=== PATIENT | male | born 1950 | race Caucasian/White ===

== ENCOUNTER 2017-05-14 09:10 | Outpatient (CLI) | payer MEDICARE, BC ==
[~2017-05-14] VITALS: Ht 182.9 cm; Wt 96.7 kg
--- NOTE | ~2017-05-14 | HEMODYNAMI ---
PATIENT:BABAK LANGLEY MEDICAL RECORD: [id number] : 52 [facility] [id number] ADMISSION DATE: 05/14/17 Generatedon:05/15/201710:01 Patient name: BABAK LANGLEY Patient #: [id number] SSN: DO B: 1950 Date of study: 05/15/2017 Page: Of Hemodynamic Procedure Report Patient Data Patient Demographics Procedure consent was obtained First Name: BABAK Gender: Male Last Name: SHIVAM : 1950 Middle Initial: ANYA Age: 66 year(s) Patient #: [id number] Race: Unknown Additional ID: [id number] Contact details [address]: [address] [place] [address] State: [place] City: [place] Zip code: [address] Past Medical History Allergies: No known allergies Admission Admission Data Admission Date: 05/14/2017 Admission Time: 13:11 Room #: .2121 Procedure Procedure Types Cath Procedure Diagnostic Procedure LHC LHC w/Coronaries PCI Procedure Coronary Stent Coronary Stent Initial Coronary Stent Additional Miscellaneous Procedures Moderate Sedation up to 30 minutes Procedure Description Procedure Date Procedure Date: 05/15/2017 Procedure Start Time: 9:28 Procedure End Time: 10:01 Procedure Staff Name Function Tres Phillips MD Performing Physician Clarice Stubbs RT Monitor Emma Holcomb RT Scrub Jared Lilly RN Nurse Procedure Data Cath Procedure Fluoroscopy Diagnostic fluoroscopy Total fluoroscopy Time: 5.8 time: 5.8 min min Diagnostic fluoroscopy Total fluoroscopy dose: dose: 1130 mGy 1130 mGy Contrast Material Contrast Material Type Amount (ml) Isovue 300 132 Entry Location Entry Primary Successful Side Size Upsize Upsize Entry Closure Succes sful Closure Location (Fr) 1 (Fr) 2 (Fr) Remarks Device Remarks Femoral Right 5 Fr 6 Fr Exoseal artery Short Estimated blood loss: 10 ml Diagnostic catheters Device Type Used For End Catheter Placement Cordis 5Fr JL 4.0 Left Coronary Catheter (MP) Angiography Cordis 5Fr 3DRC Catheter Right Coronary (MP) Angiography Cordis 5Fr Pigtail LV Angiography Catheter (MP) Procedure Complications No complications Procedure Medications Medication Administration Route Dosage Oxygen NC 2 l/min Lidocaine 2% added to field 20 Heparin Flush Bag added to field 2 bags (1000units/500ml NS) 0.9% NaCl I.V. 100 ml/hr Versed I.V. 1 mg Fentanyl I.V. 50 mcg Heparin Bolus I.V. 5000 units Versed I.V. 1 mg Fentanyl I.V. 50 mcg Versed I.V. 1 mg Atropine I.V. 1 mg Versed I.V. 1 mg Plavix P.O. 75 mg Hemodynamics Rest Heart Rate: 65 (bpm) Pressure Samples Time Site Value (mmHg) Purpose Heart Use Rate(bpm) 9:35 LV 124/8,17 Snapshot 76 9:36 AO 114/60(83) Pullback 75 9:36 LV 130/13,18 Pullback 75 Gradients Valve Time Site 1 Site 2 Mean SEP/DFP Peak To Heart Use (mmHg) (sec/min) Peak Rate (mmHg) (bpm) Aortic 9:36 LV AO 8 20 16 75 130/13,18 114/60(83) Calculations Valve P-P Mean Valve Index Valve Source Name Gradient Area Flow (cm2) Aortic 16 8 16 8 Snapshots Pre Cath Intra NCS Post Cath Vital Signs Time Heart Resp SPO2 etCO2 NIBP (mmHg) Rhythm Pain Sedation Rate (ipm) (%) (mmHg) Status Level (bpm) 9:21:19 65 15 98 33.3 139/78(107) NSR 0 (11) 10(A) , No pain 9:26:08 67 14 98 10.6 136/72(100) NSR 0 (11) 10(A) , No pain 9:30:54 71 17 94 35.5 121/77(102) NSR 0 (11) 9(A) , No pain 9:35:39 76 15 95 7.5 128/71(101) NSR 0 (11) 9(A) , No pain 9:40:24 73 15 94 0 132/70(106) NSR 0 (11) 9(A) , No pain 9:45:11 85 15 94 0 128/71(95) NSR 0 (11) 9(A) , No pain 9:49:55 91 16 97 28 133/85(105) NSR 0 (11) 9(A) , No pain 9:54:42 98 15 97 37.1 142/81(105) NSR 0 (11) 10(A) , No pain 9:59:31 101 16 96 28.8 146/80(119) NSR 0 (11) 10(A) , No pain Medications Time Medication Route Dose Verified Delivered Reason Notes Effectiveness by by 9:22:05 Oxygen NC 2 Tres Buffie used for l/min [facility] Dru Lilly RN procedure 9:22:14 Lidocaine 2% added 20ml Tres Tres for local to vial [facility] anesthetic field MD MASTERS 9:22:21 Heparin Flush added 2 Tres Tres used for Bag to bags [facility] procedure (1000units/500ml field MD MASTERS NS) 9:22:30 0.9% NaCl I.V. 100 Tres Buffie Per physician ml/hr [facility] Dru Lilly RN, MD 9:27:34 Versed I.V. 1 mg Tres Buffie for sedation [facility]. Dru Lilly RN, MD 9:27:40 Fentanyl I.V. 50 Tres Buffie for sedation mcg [facility] Dru Lilly RN, MD 9:33:14 Versed I.V. 1 mg Tres Buffie for sedation [facility]. Dru Lilly RN, MD 9:33:18 Fentanyl I.V. 50 Tres Buffie for sedation mcg [facility] Dru Lilly RN, MD 9:41:15 Heparin Bolus I.V. 5000 Tres Buffie for verifie d units [facility] Dru Lilly RN anticoagulation with dr MD mcmanus 9:43:44 Versed I.V. 1 mg Tres Buffie for sedation [facility] Dru Lilly RN, MD 9:47:15 Atropine I.V. 1 mg Tres Buffie Per physician for [facility]. Dru Lilly RN bradycardia at 41 bpm. 9:51:43 Versed I.V. 1 mg Tres Buffie for sedation St. Dru Lilly RN, MD 9:57:34 Plavix P.O. 75 mg Tres Buffie for [facility] Dru Lilly RN antiplatelet therapy Procedure Log Time Note 8:57:22 Clarice Counts RT(R) sent for patient. Start room use. 8:57:22 Time tracking: Regular hours 8:57:27 Plan of Care:Hemodynamics will remain stable., Cardiac rhythm will remain stable., Comfort level will be maintained., Respiratory function will remain adequate., Patient/ family verbilizes understanding of procedure., Procedure tolerated without complication., Recovers from procedure without complications.. 9:15:09 Patient received from PCU to CCL 1 Alert and oriented. Tansferred to table in Supine position. 9:20:17 Warm blankets applied, and deon hugger turned on for patient comfort. 9:20:18 Correct patient and procedure confirmed by team. 9:20:19 Signed procedure consent form obtained from patient. 9:20:20 ECG and BP/O2 sat monitors applied to patient. 9:20:21 Vital chart was started 9:20:22 Full Disclosure recording started 9:20:25 Rhythm: sinus rhythm 9:20:35 H&P Date Dictated: 05/14/2017 Within 30 days and on chart.. 9:20:36 Pre-procedure instructions explained to patient. 9:20:37 Pre-op teaching completed and patient verbalized understanding. 9:20:38 Family in patients room. 9:20:40 Patient NPO since Midnight. 9:20:46 Patient allergic to No known allergies 9:20:49 Is the patient allergic to Iodine/contrast media? No. 9:20:51 Is patient on blood thinner?Yes 9:20:53 ACC The patient was administered the following blood thiners within the last 24 hours: ACCPlavix 9:20:55 Patient diabetic? No. 9:21:02 Previous problem with sedation/anesthesia? Yes Nausea 9:21:03 Snore? Yes 9:21:04 Sleep apnea? No 9:21:05 Deviated septum? No 9:21:06 Opens mouth fully? Yes 9:21:07 Sticks out tongue? Yes 9:21:10 Airway obstruction? No ? 9:21:21 Dentures? Yes Partial Implant 9:21:25 Pre procedure: right dorsailis pedis pulse 2+ Normal; easily identifiable; not easily obliterated 9:21:27 Patient pain scale 0/10 ?. 9:21:34 IV patent on arrival in right wrist with 0.9% NaCl at KVO. 9:21:37 Lab results completed and on chart. 9:21:40 Right groin area was prepped with chlora-prep and draped in sterile fashion 9:21:41 Alarms reviewed by R. N. 9:21:41 Sharps counted by scrub and verified by R.N. 9:21:45 Use device set Femoral Dx 9:21:46 Acist Syringe opened to sterile field. 9:21:47 Bag Decanter opened to sterile field. 9:21:47 Medline Cath Pack opened to sterile field. 9:21:48 Terumo 5Fr Du Bois Sheath opened to sterile field. 9:21:48 St Emory 260cm J .035 wire opened to sterile field. 9:21:49 Acist Hand Control opened to sterile field. 9:21:50 Acist Manifold opened to sterile field. 9:21:50 Diagnostic Infinity 5Fr Multipack catheter opened to sterile field. 9:21:51 Tegaderm 4 x 4 opened to sterile field. 9:22:05 Oxygen 2 l/min NC was administered by Jared Lilly RN; used for procedure; 9:22:14 Lidocaine 2% 20ml vial added to field was administered by Tres Phillips MD; for local anesthetic; 9:22:21 Heparin Flush Bag (1000units/500ml NS) 2 bags added to field was administered by Tres Phillips MD; used for procedure; 9:22:30 0.9% NaCl 100 ml/hr I.V. was administered by Jared Lilly RN; Per physician; 9:22:54 Final Timeout: patient, procedure, and site verified with staff and physician. All members of the team are in agreement. 9:22:56 Right groin site verified by team. 9:23:00 Physical assessment completed. ASA score P 2 - A patient with mild systemic disease as per Tres Phillips MD. 9:23:02 Sedation plan: IV Moderate Sedation Medication:Versed, Fentanyl 9:25:11 Baseline sample Acquired. 9:27:34 Versed 1 mg I.V. was administered by Jared Lilly RN; for sedation; 9::40 Fentanyl 50 mcg I.V. was administered by Jared Lilly RN; for sedation; 9:27:51 Zero performed for pressure channel P1 9:28:25 Procedure started. 9:28:28 Local anesthetic to right femoral artery with Lidocaine 2% by Tres Phillips MD.INITIAL ACCESS ONLY 9:29:08 A 5 Fr sheath was inserted into the Right Femoral artery 9:30:38 A Cordis 5Fr JL 4.0 Catheter (MP) was advanced over the wire and used for Left Coronary Angiography. 9:33:03 Catheter removed. 9:33:10 A Cordis 5Fr 3DRC Catheter (MP) was advanced over the wire and used for Right Coronary Angiography. 9:33:14 Versed 1 mg I.V. was administered by Jared Lilly RN; for sedation; 9:33:18 Fentanyl 50 mcg I.V. was administered by Jared Lilly RN; for sedation; 9:33:23 Catheter removed. 9:35:30 A Cordis 5Fr Pigtail Catheter (MP) was advanced over the wire and used for LV Angiography. 9:35:47 LV gram done using VALENCIA 9:35:51 Injector settings: Ml/sec: 5, Volume: 15, 9:35:57 EF : 60 % 9:36:07 Catheter removed. 9:39:19 Terumo 6Fr Du Bois Sheath opened to sterile field. 9:39:19 Medtronic Launcher 6Fr HS I guide catheter opened to sterile field. 9:39:20 Ordonez Whisper J 300cm 0.014 guide wire opened to sterile field. 9:39:21 FirstBest BasixCompak Inflation Kit opened to sterile field. 9:39:29 Sheath upsized to a 6 Fr Short. 9:41:15 Heparin Bolus 5000 units I.V. was administered by Jared Lilly RN; for anticoagulation; verified with dr mcmanus 9:42:16 6 Fr HS I guide catheter was inserted over the wire 9:43:18 Whisper wire advanced. 9:43:44 Versed 1 mg I.V. was administered by Jared Lilly RN; for sedation; 9:45:19 Inflation Number: 1 A Medtronic Integrity 3.0 X 12 stent was prepped and advanced across the R PDA. The stent was deployed at 12 SUNNY for 0:20 (min:sec). 9:46:02 Stent catheter was removed intact over wire. 9:47:15 Atropine 1 mg I.V. was administered by Jared Lilly RN; Per physician; for bradycardia at 41 bpm. 9:49:26 Inflation Number: 2 A Medtronic Integrity 3.5 X 26 stent was prepped and advanced across the Prox RCA. The stent was deployed at 14 SUNNY for 0:35 (min:sec). 9:51:42 Stent catheter was removed intact over wire. 9:51:43 Versed 1 mg I.V. was administered by Jared Lilly RN; for sedation; 9:53:00 Inflation Number: 2 A Medtronic Integrity 3.5 X 9 stent was prepped and advanced across the Prox RCA. The stent was deployed at 14 SUNNY for 0:27 (min:sec). 9:53:21 Stent catheter was removed intact over wire. 9:53:22 Wire removed. 9:53:22 Guide catheter removed. 9:53:36 Sheath removed intact; hemostasis achieved with Exoseal to the Right Femoral artery. 9:53:38 Procedure ended.(Physican Out) 9:53:49 Fluoroscopy time 05.80 minutes. 9:53:53 Flurop Dose total: 1130 9:53:53 Fluoroscopy dose: 1130 mGy 9:53:56 Contrast amount:Isovue 300 132ml. 9:53:58 Sharps counted by scrub and verified by R.N. 9:53:59 Insertion/operative site no bleeding no hematoma. 9:54:02 Post-op/insertion site Right Femoral artery dressed using a 4 x 4 and Tegaderm. 9:54:06 Post right femoral artery:stable, clean and dry 9:54:08 Post Procedure Pulses reassessed and unchanged 9:54:10 Post-procedure physical assessment completed. ASA score P 2 - A patient with mild systemic disease as per Tres Phillips MD. 9:54:12 Post procedure rhythm: unchanged. 9:54:19 Cordis 6Fr Exoseal opened to sterile field. 9:54:25 Estimated blood loss: 10 ml 9:54:27 Post procedure instruction explained to patient.Patient verbalizes understanding. 9:54:28 Patient needs reinforcement of post procedure teaching. 9:54:35 Procedure Complication : No complications 9:54:39 See physician's report for complete and final results. 9:54:50 Procedure type changed to Cath procedure, Diagnostic procedure, LHC, LHC w/Coronaries, PCI procedure, Coronary Stent, Coronary Stent Initial, Coronary Stent Additional, Miscellaneous Procedures, Moderate Sedation up to 30 minutes 9:56:57 Procedure and supply charges have been captured, reviewed, submitted and are correct. 9:57:34 Plavix 75 mg P.O. was administered by Jared Lilly RN; for antiplatelet therapy; 10:01:29 Vital chart was stopped 10:01:30 Report given to PCU. 10:01:34 Patient transfered to PCU with Bed. 10::40 Procedure ended. 10:01:40 Full Disclosure recording stopped 10:01:44 End room use (Document Last) Intervention Summary Intervention Notes Time ActionType Lesion and Equipment Action# Pressure Duration Attributes Used 9:45:19 Place stent R PDA Medtronic 1 12 00:20 Integrity 3.0 X 12 stent 9:49:26 Place stent Prox RCA Medtronic 2 14 00:35 Integrity 3.5 X 26 stent 9:53:00 Place stent Prox RCA Medtronic 2 14 00:28 Integrity 3.5 X 9 stent Device Usage Item Name Manufacture Quantity Catalog Hospital Part Current Minimal L ot# / Number Charge Number Stock Stock Serial# Code Acist Acist 1 25085 224020 033246 686337 20 SimpliVT Medical [employer] Inc Bag Microtek 1 2002S 768061 69162 215733 5 Nutrinia. Medline Cardinal 1 [id number] 055423 18456 005310 5 Cath Pack Health Terumo 5Fr Terumo 1 [id number] 961170 235541 228790 [address] [facility] Emory 1 140427 309773 358548 816364 30 260cm J .035 wire Acist Hand Acist 1 16999 282197 502999 915893 5 Crossbar Medical Systems Inc Acist Acist 1 56949 929970 314430 173788 5 Pursuit Vascular Medical Systems Inc Diagnostic Cardinal 1 [id number] 447341 16589 368147 30 Infinity Health 5Fr Multipack catheter Tegaderm 4 3M 1 1626W 596785 907432 330809 5 x 4 Cordis 5Fr Cardinal 1 603318 5 JL 4.0 Health Catheter (MP) Cordis 5Fr Cardinal 1 499593 5 3DRC Health Catheter (MP) Cordis 5Fr Cardinal 1 025663 5 Pigtail Health Catheter (MP) Terumo 6Fr Terumo 1 [id number] 426617 893421 940521 40 [place] Sheath Medtronic Medtronic 1 [id number] 582754 89919 093000 1 Launcher 6Fr HS I guide catheter Ordonez Ordonez 1 [id number] 407304 862986 356654 5 Whisper J Vascular 300cm 0.014 guide wire Merit Merit 1 [id number] 757642 275261 631448 15 BasixCompak Medical Inflation Kit Medtronic Medtronic 1 [id number] 219316 717860 1 0 [id number] Integrity 3.0 X 12 stent Medtronic Medtronic 1 [id number] 912672 315826 1 0 [id number] Integrity 3.5 X 26 stent Medtronic Medtronic 1 [id number] 333094 961884 1 0 [id number] Integrity 3.5 X 9 stent Cordis 6Fr Cardinal 1 EX600 755772 321058 590933 10 SignNowsumma health [employer] Signature Audit [place] Stage Time Signature Unsigned Intra-Procedure 05/15/2017 Clarice 10:01:55 AM Counts RT(R) Signatures Monitor : Clarice Signature : Counts RT Date : Time : [address] [place] [address]
[2017-05-14 10:01] LABS: BASOPHILS 0.4 % (0-2); EOSINOPHILS 2.7 % (0-7); HEMATOCRIT 42.3 % (42.0-54.0); HEMOGLOBIN 13.8 g/dL (13.5-17.5); IMMATURE GRANULOCYTES 0.4 % (0-5); MCH 28.8 pg (26.0-34.0); MCHC 32.6 g/dL (31.0-37.0); MCV 88.3 fL (80.0-100.0); MEAN PLATELET VOLUME 8.6 fL (7.4-10.4); MONOCYTES 11.2 % (2-11); NEUTROPHILS 53.3 % (40-80); PLATELET COUNT 231 10x3/uL (130-400); RBC 4.79 10x6/uL (4.20-6.10); RDW 14.2 % (11.5-14.5); WBC 5.5 10x3/uL (4.8-10.8)
[2017-05-14 10:30] LABS: ALBUMIN 3.6 g/dL (3.4-5.0); ALKALINE PHOSPHATASE 74 U/L (46-116); ALT (SGPT) 38 U/L (10-68); BILIRUBIN - TOTAL 0.44 mg/dL (0.2-1.3); CALC OSMOLALITY 284 mosm/kg (275-300); CALCIUM 8.8 mg/dL (8.5-10.1); CARBON DIOXIDE 24.1 mmol/L (21.0-32.0); CHLORIDE - SERUM 106 mmol/L (98-107); CREATININE - SERUM 0.9 mg/dL (0.6-1.3); GLUCOSE 120 mg/dL (74-106); POTASSIUM - SERUM 3.8 mmol/L (3.5-5.1); PROTEIN - SERUM 7.2 g/dL (6.4-8.2); SODIUM 143 mmol/L (136-145); UREA NITROGEN 9 mg/dL (7-18); eGFR NON AFRICAN AMERICAN 90 mL/min (90-120)
[2017-05-14 10:46] LABS: CKMB 9.3 U/L (0.0-3.6); CREATINE KINASE 348 UL (21-232)
[2017-05-14 10:47] LABS: CHOL - HDL RATIO 3.5 ratio (2.3-4.9); CHOLESTEROL, TOTAL 141 mg/dL (0-200); HDL CHOLESTEROL 40 mg/dL (32-96); LDL CHOLESTEROL 77 mg/dL (0-100); LDL-HDL RATIO 1.9 ratio (1.5-3.5); TRIGLYCERIDE 121 mg/dL (30-200)
[2017-05-14 10:49] LABS: TROPONIN-I < 0.017 ng/mL (0.000-0.060)
[2017-05-14 14:00] LABS: CKMB 8.5 U/L (0.0-3.6); CREATINE KINASE 300 UL (21-232)
--- NOTE | 2017-05-14 14:00 | NUR ---
RECEIVED REPORT FROM [facility] IN ER. PATIENT TO FLOOR SOON.
[2017-05-14 14:10] LABS: TROPONIN-I < 0.017 ng/mL (0.000-0.060)
--- NOTE | 2017-05-14 14:15 | NUR ---
RECEIVED PATIENT VIA WHEELCHAIR FROM ED. ALERT/ORIENTED. AMBULATORY. RIGHT WRIST SALINE LOCKED. PATIENT STATES HE FEELS FINE RIGHT NOW. NO DISTRESS. RESP EVEN AND UNLABORED.
[2017-05-14] MEDS ORDERED: LISINOPRIL10 MG PO (14:18)
[2017-05-14] MEDS ORDERED: LIPITOR10 MG PO (14:18)
[2017-05-14] MEDS ORDERED: ARICEPT5 MG PO (14:18)
[2017-05-14] MEDS ORDERED: OMEPRAZOLE20 M1 PO (14:19)
[2017-05-14] MEDS ORDERED: LEVOTHYROXINE125 MCG PO (14:20)
[2017-05-14 14:41] VITALS: BP 117/54; Ht 182.9 cm; Wt 96.7 kg
[2017-05-14 16:00] VITALS: BP 105/49
--- NOTE | 2017-05-14 18:59 | NUR ---
RESTING IN BED WITH EYES OPEN. NO DISTRESS. CALL LIGHT WITHIN REACH.
[2017-05-14 20:09] LABS: CKMB 7.1 U/L (0.0-3.6); CREATINE KINASE 287 UL (21-232)
[2017-05-14 20:10] LABS: TROPONIN-I < 0.017 ng/mL (0.000-0.060)
--- NOTE | 2017-05-14 20:29 | NUR ---
INITIAL ROUNDS COMPLETED AT 1915 HRS. PT DENIED ANY DISCOMFORT. ASSESSMENT COMPLETED AT 2004 HRS. SB PER CM HR 54. IV TO R HAND SL. LUNGS CTA. EKG DONE. REINFORCED NPO AFTER MIDNIGHT FOR AM LHC. PT STATED UNDERSTANDING. WILL CONTINUE TO MONITOR. SR UP X2, CALL LIGHT WITHIN REACH.
[2017-05-14 21:07] VITALS: BP 107/48
--- NOTE | 2017-05-14 21:46 | NUR ---
PT RESTING WITH EYES CLOSED. RESP EVEN AND REGULAR. SR UP X2, CALL LIGHT WITHIN REACH.
--- NOTE | 2017-05-15 00:18 | NUR ---
PT WATCHING TV. NO DISTRESS NOTED. WILL CONTINUE TO MONITOR.
[2017-05-15 00:42] VITALS: BP 110/52
--- NOTE | 2017-05-15 01:59 | NUR ---
PT RESTING WITH EYES CLOSED. RESP EVEN AND REGULAR. SR UP X2, CALL LIGHT WITHIN REACH.
--- NOTE | 2017-05-15 04:43 | NUR ---
PT RESTING WITH EYES CLOSED. RESP EVEN AND REGULAR. SR UP X2, CALL LIGHT WITHIN REACH.
--- NOTE | 2017-05-15 06:28 | NUR ---
VSS THROUGHOUT NIGHT. SR/SB PER CM. PT DENIED ANY DISCOMFORT. NEEDS MET; WILL CONTINUE TO MONITOR.
--- NOTE | 2017-05-15 07:30 | NUR ---
RECEIVED PT IN BED AAOX4 RESP UNLABORED PT DENIES ANY NEEDS OR DISCOMFORT NAD NOTED
[2017-05-15 07:51] VITALS: BP 124/55
[2017-05-15 09:10] LABS: BASOPHILS 0.4 % (0-2); EOSINOPHILS 1.5 % (0-7); HEMATOCRIT 41.2 % (42.0-54.0); HEMOGLOBIN 13.4 g/dL (13.5-17.5); IMMATURE GRANULOCYTES 0.1 % (0-5); LYMPHOCYTES 24.7 % (15-50); MCH 28.8 pg (26.0-34.0); MCHC 32.5 g/dL (31.0-37.0); MCV 88.4 fL (80.0-100.0); MEAN PLATELET VOLUME 8.4 fL (7.4-10.4); MONOCYTES 8.3 % (2-11); PLATELET COUNT 220 10x3/uL (130-400); RBC 4.66 10x6/uL (4.20-6.10); RDW 14.3 % (11.5-14.5)
[2017-05-15 09:18] LABS: ANION GAP 12.2 mmol/L (8-16); CALCIUM 9.1 mg/dL (8.5-10.1); CARBON DIOXIDE 26.4 mmol/L (21.0-32.0); CREATININE - SERUM 1.1 mg/dL (0.6-1.3); POTASSIUM - SERUM 3.6 mmol/L (3.5-5.1)
--- NOTE | 2017-05-15 11:39 | HP ---
PATIENT: BABAK LANGLEY MEDICAL RECORD: [id number] ACCOUNT: [id number] LOCATION:.[facility].2120 : 52 ADMISSION DATE: 05/14/17 HISTORY AND PHYSICAL EXAMINATION HISTORY OF PRESENT ILLNESS: A 66-year-old gentleman with no known history of coronary artery disease. He has a history of intermittent chest tightness and pressure with exertion accompanied by nausea, shortness breath. He actually saw Dr. Fierro, was scheduled for diagnostic angiography. He has had rest pain in the last 2 evenings and we were asked to see him concerning his cardiovascular status. PAST MEDICAL HISTORY: Includes: 1. History of hypertension. 2. Hyperlipidemia. 3. Gastroesophageal reflux disease. 4. Hypothyroidism, on replacement. ALLERGIES: None known. MEDICATIONS: Typically include; 1. Aricept 5 mg p.o. at bedtime. 2. Lipitor 10 daily. 3. Lisinopril 10 daily. 4. Omeprazole 20 daily. 5. Synthroid 125 mcg daily. SOCIAL HISTORY: He lives here in [place]. He is a nonsmoker. No illicit drug use. He takes care of all his ADLs, although no set exercise program. REVIEW OF SYSTEMS: The patient reports easy bruising but reports no swollen glands. The patient reports no fever, no night sweats, no significant weight gain, no significant weight loss. No significant exercise tolerance. The patient reports no dry eyes, no irritation, no vision change. Patient reports no difficulty hearing and no ear pain. Patient reports no frequent nose bleeds or nose and sinus problems. Patient reports on arm pain on exertion. No shortness of breath while lying down. No history of heart murmur. Patient reports no cough, no wheezing or coughing up blood. Patient reports no abdominal pain, no vomiting. Normal appetite. No diarrhea and not vomiting blood. No nausea and no constipation. Patient reports no incontinence. No difficulty urinating. No hematuria. No increased frequency. Patient reports no muscle aches. No weakness, no arthralgias, no back pain. No swelling of the extremities. Patient reports no abnormal mole, no jaundice, no rashes. Reports no loss of consciousness. No weakness and no numbness. No seizures, dizziness, or headaches. The patient reports no depression, no sleep disturbance, feeling safe in a relationship and no alcohol abuse. Patient reports on fatigue. Reports no runny nose or sinus pressure. No itching, no hives, and no frequent sneezing. PHYSICAL EXAMINATION: GENERAL: Pleasant gentleman in no acute distress, appears stated age. VITAL SIGNS: Blood pressure 125/55, pulse 62 and regular. HEENT: Normocephalic, atraumatic. NECK: No JVD or bruit. HEART: Regular. HISTORY AND PHYSICAL [id number] BABAK LANGLEY LUNGS: Landa are clear. ABDOMEN: Soft, nontender. EXTREMITIES: Pulse 2+. No edema. NEUROLOGIC: Grossly intact. IMPRESSION: Exertional angina progressing to rest pain with positive noninvasive study. PLAN: For diagnostic angiography, intervention based on above. TRANSINT:[id number] Voice Confirmation ID: [id number] DOCUMENT ID: [id number] KELSI COLEY MD at 1139 CC: [id number] DICTATION DATE: 05/15/17 0837 LOWERATOR OPERATOR: 05/15/17 1013 ADM IN [place] [id number] [place] [id number]
[2017-05-15 12:00] VITALS: BP 124/64
[2017-05-15] MEDS ORDERED: PLAVIX75 MG PO (12:36)
--- NOTE | 2017-05-15 15:15 | NUR ---
DISCONTINUED SALINE LOCK TO R FA, CATHETER INTACT AND NO REDNESS OR SWELLING NOTED. REVIEWED DISCHARGE INSTRUCTIONS WITH PATIENT AND FAMILY. PATIENT VERBALIZES UNDERSTANDING. PERSONAL BELONGINGS SENT WITH PATIENT AND PATIENT LEFT FACILITY AT THIS TIME VIA PERSONAL TRANSPORTATION.
--- NOTE | 2017-05-16 09:07 | DS ---
PATIENT:BABAK LANGLEY :52 MEDICAL RECORD: [id number] DISCHARGE SUMMARY ADMISSION DATE: 05/14/17 DISCHARGE DATE: 05/15/17 DATE OF ADMISSION: 05/14/2017. DATE OF DISCHARGE: 05/15/2017. PROBLEM LIST: 1. Acute coronary syndrome. 2. Hypertension. 3. Hyperlipidemia. BRIEF HISTORY AND HOSPITAL COURSE: He had previously been seen in the clinic and was scheduled for outpatient angiography. He had rest symptomatology the night before admission. He underwent diagnostic angiography, confirmed disease in the right, and underwent intervention with stenting x3 to the right coronary artery. Discharged home in good condition. Loaded on Plavix preprocedure and will continued this agent for a month, see him back in the office approximately one month. ACTIVITY: As tolerated. DIET: AHA diet. TRANSINT:[id number] Voice Confirmation ID: [id number] DOCUMENT ID: [id number] KELSI COLEY MD at 0907 CC: [id number] DICTATION DATE: 05/15/17 1004 HYDROELECTRIC PLANT MAINTAINER: 05/15/17 1412 DIS IN 05/15/17 [place] [address] [place] [address]
--- NOTE | 2017-05-16 09:07 | OP ---
PATIENT NAME: BABAK LANGLEY MEDICAL RECORD: [id number] :52 LOCATION:D.M2 D.2121 ADMISSION DATE:05/14/17 SURGEON: KELSI COLEY MD DATE OF OPERATION: 05/15/2017 PROCEDURES: Left heart catheterization, selective coronary angiography, right femoral artery approach. CATHETERS: A 5-Chilean sheath, 5/4 left and right Andreas, 5/4 pig. The procedure was well tolerated. We proceeded with PTCA stenting of right coronary artery after procedure was finished. FINDINGS: Left ventriculography in 30-degree VALENCIA view: Normal wall motion, normal systolic function. CORONARY ANATOMY: LEFT MAIN: Left main is free of disease. LAD: LAD has luminal irregularities with no flow obstructing disease. CIRCUMFLEX: Moderate-sized circumflex, free of disease. RIGHT CORONARY ARTERY: Has a distal stenosis after the takeoff of the posterior descending and posterolateral itself of 80% and proximally is a long diffuse stenosis of 80% in the mid portion of the [place] right coronary, correlating nicely with nuclear study. IMPRESSION: Coronary artery disease involving the right, correlating nicely with nuclear study. PLAN: Intervention momentarily. DESCRIPTION OF PROCEDURE: A 5-Chilean sheath was changed for a 6-Chilean sheath. A hockey stick guide catheter provided excellent guide catheter support followed by a 300 cm Whisper wire down this portion of vessel. First the posterolateral branch, we placed a 3.0 x 12 mm Integrity nondrug-eluting stent up to 14 atmospheres. In the mid portion of vessel, we placed a 3.5 x 26 mm Integrity nondrug-eluting stent up to 14 atmospheres. Finally, just distal to the ostium, we placed 8 mm x 3.5 Integrity nondrug-eluting stent again to 14 atmospheres. Final injection shows excellent resolution of discrete 80% stenosis in the posterolateral and diffuse 80% stenosis in the mid portion of vessel. No significant residual. RONEY flow was 3 throughout the procedure. The patient was previously on Plavix and heparin used in place. TRANSINT:[id number] Voice Confirmation ID: [id number] DOCUMENT ID: [id number] OPERATIVE REPORT [id number] BABAK LANGLEY KELSI COLEY MD at 0907 CC: [id number] DICTATION DATE: 05/15/17 1003 BOLT LABELER: 05/15/17 1142 DIS IN 05/15/17 [facility] [address] [place] [address]
== END 2017-05-15 15:15 | disposition home or self-care (01) ==
LOC: OBSVTIME → D.OPS 09:10 → D.ER 09:10 → OBSVTIME 13:11 → D.M2 13:11 → EDSTATUS 17:11 → D.M2 05-15 15:15 → D.OPS 05-15 15:15
PROVIDERS: Emergency Medicine; Internal Medicine Interventional Cardiology
DX: I25.119 Atherosclerotic heart disease of native coronary artery with unspecified angina pectoris (principal); I10 Essential (primary) hypertension; E78.5 Hyperlipidemia, unspecified; K21.9 Gastro-esophageal reflux disease without esophagitis; E03.9 Hypothyroidism, unspecified; Z79.899 Other long term (current) drug therapy; Z01.812 Encounter for preprocedural laboratory examination

== ENCOUNTER → 2018-10-23 08:56 | Outpatient (CLI) | payer MEDICARE, BC ==
[2017-05-14 14:41] VITALS: BMI 28.7
[~2018-10-23 08:56] MED LIST: ARICEPT5 MG PO; LEVOTHYROXINE125 MCG PO; LIPITOR10 MG PO; LISINOPRIL10 MG PO; OMEPRAZOLE20 M1 PO; PLAVIX75 MG PO
--- NOTE | 2018-10-25 13:17 | EC ---
PATIENT:BABAK LANGLEY DATE OF SERVICE: 10/23/18 SEX: M MEDICAL RECORD: [id number] DATE OF : [birth year] LOCATION:D[facility] AGE OF PATIENT: 68 ADMISSION DATE: 10/23/18 REFERRING PHYSICIAN: INTERPRETING PHYSICIAN: KELSI COLEY MD ECHOCARDIOGRAM REPORT ECHO CHARGES 4 ECHO COMPLETE Date: 10/23/18 CLINICAL DIAGNOSIS: PVC'S/MURMUR H/O CAD/HTN ECHOCARDIOGRAPHIC MEASUREMENTS (adult normal given) AC root (d.<3.7cm) 3.3 cm LV Septum d (<1.2 cm> 0.9 cm Valve Excursion 1.7 cm LV Septum (systole) 1.3 cm Left Atria (s.<4.0cm> 3.6 cm LVPW d(<1.2cm) 1.1 cm RV (d.<2.3cm) 2.3 cm LVPW (sytole) 1.6 cm LV diastole(<5.6CM) 5.5 cm MV E-F(>70mm/sec) cm LV systole 3.8 cm LVOT Diameter 1.9 cm MV exc.(>10mm) cm Est.ejection fraction (50-75%) % DOPPLER: LVIT cm/sec A 49.0 cm/sec E 90.0 cm/sec LA cm/sec RVSP 28.0 mmHg LVOT 121 cm/sec AOP1/2T m/s Asc. Ao 130 cm/sec RVOT 55.0 cm/sec RA cm/sec PA 119 cm/sec AV Gradient Peak 6.8 mmHg AV Mean 3.3 mmHg AV Area 3.1 cm MV Gradient Peak 4.5 mmHg MV Mean 1.4 mmHg MV Area cm COMMENTS: OP - HC Regulatory Affairs Director: 1 CHRISTY MAXIMINO Bottom Stainer: 3 Dr. Phillips TAPE# PACS Pericardial Effusion N DATE OF SERVICE: 10/23/2018 Adequate 2-D echo, color-flow and spectral Doppler, and M-mode. No LVH. LV internal dimensions are normal. Wall motion is normal. EF is greater than or equal to 55%. Aortic valve is tricuspid. No evidence of stenosis by Doppler interrogation. Left atrium is normal at 3.6 cm. Mitral valve shows no prolapse. Trace MR. Right-sided chambers are grossly normal. Trace TR. ECHOCARDIOGRAM REPORT [id number] BABAK LANGLEY TRANSINT:[id number] Voice Confirmation ID: [id number] DOCUMENT ID: [id number] KELSI COLEY MD at 1317 CC: [id number] DICTATION DATE: 10/24/18 1319 MMA FIGHTER: 10/24/18 1539 DEP CLI 10/23/18 [place] [id number]
== END | disposition home or self-care (01) ==
LOC: D.HCCARDIO 08:56
PROVIDERS: ATTEND Internal Medicine Interventional Cardiology
DX: I25.10 Atherosclerotic heart disease of native coronary artery without angina pectoris (principal)

== ENCOUNTER → 2018-11-02 09:40 | Day surgery (SDC) | payer MEDICARE, BC ==
[2018-11-01 14:48] LABS: HEMATOCRIT 39.5 % (42.0-54.0); HEMOGLOBIN 12.5 g/dL (13.5-17.5); MCH 27.1 pg (26.0-34.0); MCHC 31.6 g/dL (31.0-37.0); MCV 85.5 fL (80.0-100.0); MEAN PLATELET VOLUME 8.5 fL (7.4-10.4); RBC 4.62 10x6/uL (4.20-6.10); RDW 14.5 % (11.5-14.5); WBC 6.7 10x3/uL (4.8-10.8)
[~2018-11-02] VITALS: Ht 182.9 cm; Wt 93.0 kg
[~2018-11-02 09:40] MED LIST changes: +CELEXA20 MG PO; +CENTRUM MEN'S1 EACH PO; +FISH OIL 1,0001 CA1 PO; +HYDROCODON-ACE1 EA10 PO; +NIASPAN500 MG PO; +PEPTO BISMOL; +TRAZODONE HCL 100 MG PO; +VIBRAMYCIN50 MG PO
[2018-11-02 10:42] VITALS: BP 129/56; Ht 182.9 cm; Wt 93.0 kg
--- NOTE | 2018-11-02 17:04 | NUR ---
4828 ALL DISCHARGE INSTRUCTIONS GIVEN. VOICES UNDERSTANDING. IV REMOVED WITH CATHALON INTACT. DRESSED IN ROOM TO GO HOME. TAKEN DOWN VIA W/C BY NICOLE COOLEY.
--- NOTE | 2018-11-13 07:51 | OP ---
PATIENT NAME: BABAK LANGLEY MEDICAL RECORD: [id number] :52 LOCATION:DL ADMISSION DATE: SURGEON: JOSETTE PARDO MD DATE OF OPERATION: 11/02/2018 PREOPERATIVE DIAGNOSIS: SLAP lesion of the right shoulder with impingement syndrome. POSTOPERATIVE DIAGNOSIS: SLAP lesion of the right shoulder with impingement syndrome. PROCEDURES: 1. Arthroscopic labral debridement of the left shoulder. 2. Arthroscopic subacromial decompression with acromioplasty and bursectomy. SURGEON: Josette Pardo MD ANESTHESIA: General. INTRAOPERATIVE COMPLICATIONS: None. SUMMARY OF PATHOLOGIC FINDINGS: Consistent with preoperative diagnosis, the patient had a labral tearing causing I think intra-articular impingement. The labral did not require reapproximation back to the glenoid. It did require general and simple debridement. The patient also had impingement with excoriation of the coracoacromial ligament as well as a downward sloping acromion. OPERATIVE SUMMARY IN DETAIL: After obtaining the appropriate preoperative orthopedic surgery consent as well as anesthetic consultation, evaluation, and clearance, the patient was brought to the operating room and placed on the operating table in supine position. After general laryngeal mask airway was administered, the patient was placed in a left lateral decubitus position. All pressure points were well padded to include down leg peroneal pad as well as axillary roll. The patient was held firmly to the operating table using the vacuum pack suction system. Right upper extremity and shoulder were then prepped and draped in routine sterile fashion. The arm was held in the Arthrex traction boom at 30 degrees of forward flexion, 30 degrees of abduction with 10 pounds of traction laterally. Arthroscopy was established in the glenohumeral joint from the posterior portal. Anterior portal was established in the anterior safe interval. At this point, the arthroscopic resector was utilized to gently debride the labrum back to the labral stable elements. The patient did have somewhat of a large radial tear posteriorly as well as a minimal bucket-handle tear anteriorly. This was debrided. 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 Having completed this, attention was turned to the subacromial space. While on subacromial space, Arthrex tissue ablation system was utilized to denude the undersurface of the acromion of all soft tissue elements as well as release the coracoacromial ligament. A 5-0 barrel bur was used for acromioplasty at the level of the acromioclavicular joint. Having completed this, all subacromial bursa was taken down anteriorly, posteriorly as well as laterally and superiorly. Having completed this, arthroscopy portals were closed in routine interrupted fashion using 4-0 Prolene. Sterile dressings were applied. The patient was awakened and taken to recovery room in stable condition. All final needle and sponge counts were correct. OPERATIVE REPORT [id number] BABAK LANGLEY TRANSINT:[id number] Voice Confirmation ID: [id number] DOCUMENT ID: [id number] EDVIN MASTERS, JOSETTE MAGALLANES at 0751 CC: [id number] DICTATION DATE: 11/10/18 1214 IMMIGRATION CASE WORKER: 11/10/18 1550 [facility] 11/02/18 [place] [id number] [place] [id number]
== END | disposition home or self-care (01) ==
LOC: D.OPS 09:40 → D.PAN 09:50 → D.OPS 11:45 → D.PAN 13:15 → D.OPS 14:45
PROVIDERS: Anesthesiology; ATTEND Orthopaedic Surgery
DX: S43.431A Superior glenoid labrum lesion of right shoulder, initial encounter (principal)

== ENCOUNTER 2019-08-02 05:40 | Day surgery (SDC) | payer MEDICARE, BC ==
[2019-08-01 10:47] LABS: HEMATOCRIT 41.3 % (42.0-54.0); MCH 26.7 pg (26.0-34.0); MCHC 31.5 g/dL (31.0-37.0); MEAN PLATELET VOLUME 8.5 fL (7.4-10.4); RBC 4.86 10x6/uL (4.20-6.10); RDW 14.3 % (11.5-14.5); WBC 7.6 10x3/uL (4.8-10.8)
[~2019-08-02] VITALS: Ht 182.9 cm; Wt 95.3 kg
[~2019-08-02 05:40] MED LIST changes: +DONEPEZIL HCL5 MG PO; +NEXIUM20 MG PO
[2019-08-02 06:33] VITALS: BP 123/66; Ht 182.9 cm; Wt 95.3 kg
[2019-08-02] MEDS ORDERED: HYDROCODON-ACE1 EA10 PO (08:46)
== END 2019-08-02 10:35 | disposition home or self-care (01) ==
LOC: D.OPS 05:40 → D.PAN 07:30 → D.OPS 10:35
PROVIDERS: Anesthesiology; ATTEND Neurological Surgery
DX: G56.03 Carpal tunnel syndrome, bilateral upper limbs (principal); E03.9 Hypothyroidism, unspecified; E78.2 Mixed hyperlipidemia; I10 Essential (primary) hypertension; K21.9 Gastro-esophageal reflux disease without esophagitis; G30.9 Alzheimer's disease, unspecified; F02.80 Dementia in other diseases classified elsewhere, unspecified severity, without behavioral disturbance, psychotic disturbance, mood disturbance, and anxiety

== ENCOUNTER 2019-09-07 05:45 | Day surgery (SDC) | payer MEDICARE, BC ==
[2019-09-06 11:15] LABS: HEMATOCRIT 39.3 % (42.0-54.0); HEMOGLOBIN 12.2 g/dL (13.5-17.5); MCV 83.8 fL (80.0-100.0); MEAN PLATELET VOLUME 8.1 fL (7.4-10.4); RBC 4.69 10x6/uL (4.20-6.10); RDW 14.6 % (11.5-14.5); WBC 5.7 10x3/uL (4.8-10.8)
[~2019-09-07] VITALS: Ht 182.9 cm; Wt 95.3 kg
--- NOTE | ~2019-09-07 | OP ---
PATIENT NAME: BABAK LANGLEY MEDICAL RECORD: [id number] :52 LOCATION:DL ADMISSION DATE: SURGEON: RUMA MANZANARES MD DATE OF OPERATION: 09/07/2019 PREOPERATIVE DIAGNOSIS: Left carpal tunnel syndrome. POSTOPERATIVE DIAGNOSIS: Left carpal tunnel syndrome. PROCEDURE: Left carpal tunnel release. DESCRIPTION AND TECHNIQUE: After induction of TIVA anesthesia, the left upper extremity was prepped and draped in usual sterile fashion, exsanguinated with an Sebastian wrap and then a tourniquet was inflated to 250 mmHg. A linear longitudinal incision was made just medial to the wrist crease. A progressive dissection took place through the layers until the transverse carpal ligament was identified. This was incised under direct vision with a 15-blade until the proximal and distal portions of the median nerve were completely freed from the compression of the transverse carpal ligament. The tourniquet was released. Meticulous hemostasis was maintained throughout the wound with bipolar cautery. The skin edges were reapproximated with interrupted 4-0 nylon using a vertical mattress style suture. A sterile dressing was applied to the wound. The patient was awakened in good condition, taken to recovery. All counts were reported as correct. Estimated blood loss was minimal. TRANSINT:[id number] Voice Confirmation ID: [id number] DOCUMENT ID: [id number] RUMA MANZANARES MD CC: [id number] DICTATION DATE: 09/11/19813 EYEGLASS LENS CUTTER: 09/11/19900 [facility] 09/07/19 [place] [id number]
[2019-09-07 06:13] VITALS: BP 111/58; Ht 182.9 cm; Wt 95.3 kg
[2019-09-07] MEDS ORDERED: HYDROCODON-ACE1 EA10 PO (08:33)
--- NOTE | 2019-09-07 08:59 | NUR ---
0856-REC'D FROM RR. AWAKE AND ALERT. VSS DENIES PAIN DRESSING TO RIGHT HAND CDI. CAP REFILL LESS THAN 3 SECONDS. STRONG RADIAL REGULAR PULSE TO RIGHT HAND. REVIEWED DISCHARGE CRITERIA. CL IN EASY REACH. SPOUSE AT BEDSIDE
--- NOTE | 2019-09-07 09:14 | NUR ---
FULL LIQUID TRAY TO ROOM
--- NOTE | 2019-09-07 10:00 | NUR ---
0950-DISCHARGE CRITERIA MET. REMOVED IV WITH CATH INTACT,DISPOSED INTO SHARPS,COVERED WITH GUAZE,SECURED WITH MEDIPORE TAPE. REVIEWED POST OPERATIVE INSTRUCTIONS AND FOLLOW UP APPOINTMENT. VERBALIZED UKNDERSTANDING.
--- NOTE | 2019-09-07 10:01 | NUR ---
0955-ESCORTED OUT VIA W/C WITH SPOUSE AWAITING TO DRIVE HOME
== END 2019-09-07 09:55 | disposition home or self-care (01) ==
LOC: D.OPS 05:45 → D.PAN 07:30 → D.OPS 09:55
PROVIDERS: Anesthesiology; ATTEND Neurological Surgery
DX: G56.03 Carpal tunnel syndrome, bilateral upper limbs (principal); G30.9 Alzheimer's disease, unspecified; F02.80 Dementia in other diseases classified elsewhere, unspecified severity, without behavioral disturbance, psychotic disturbance, mood disturbance, and anxiety; E03.9 Hypothyroidism, unspecified; E78.2 Mixed hyperlipidemia; I10 Essential (primary) hypertension; K21.9 Gastro-esophageal reflux disease without esophagitis

== ENCOUNTER → 2019-10-01 17:51 | Outpatient (CLI) | payer MEDICARE, BC ==
[2019-09-07 06:13] VITALS: BMI 28.5
== END | disposition home or self-care (01) ==
LOC: D.LABREF 17:51
PROVIDERS: ATTEND Urology
DX: R31.9 Hematuria, unspecified (principal)

== ENCOUNTER → 2019-10-09 09:48 | Outpatient (CLI) | payer MEDICARE, BC ==
[2019-09-07 06:13] VITALS: BMI 28.5
== END | disposition home or self-care (01) ==
LOC: D.CT 09:48
PROVIDERS: ATTEND Urology
DX: R31.21 Asymptomatic microscopic hematuria (principal)

== ENCOUNTER → 2019-11-13 10:11 | Outpatient (CLI) | payer MEDICARE, BC ==
[2019-09-07 06:13] VITALS: BMI 28.5
--- NOTE | 2019-11-15 08:04 | EC ---
PATIENT:BABAK LANGLEY DATE OF SERVICE: 11/13/19 SEX: M MEDICAL RECORD: [id number] DATE OF : [birth year] LOCATION:D.[facility] AGE OF PATIENT: 69 ADMISSION DATE: 11/13/19 REFERRING PHYSICIAN: INTERPRETING PHYSICIAN: KELSI COLEY MD ECHOCARDIOGRAM REPORT ECHO CHARGES 4 ECHO COMPLETE Date: 11/13/19 CLINICAL DIAGNOSIS: HX OF CAD ECHOCARDIOGRAPHIC MEASUREMENTS (adult normal given) AC root (d.<3.7cm) 3.9 cm LV Septum d (<1.2 cm> 1.1 cm Valve Excursion 1.6 cm LV Septum (systole) 1.6 cm Left Atria (s.<4.0cm> 4.1 cm LVPW d(<1.2cm) 1.2 cm RV (d.<2.3cm) 4.3 cm LVPW (sytole) 1.7 cm LV diastole(<5.6CM) 4.9 cm MV E-F(>70mm/sec) cm LV systole 2.9 cm LVOT Diameter 1.9 cm MV exc.(>10mm) 2.2 cm Est.ejection fraction (50-75%) % DOPPLER: LVIT cm/sec A 61.0 cm/sec E 88.0 cm/sec LA cm/sec RVSP 22 mmHg LVOT 117 cm/sec AOP1/2T m/s Asc. Ao 150 cm/sec RVOT 111 cm/sec RA cm/sec PA 130 cm/sec AV Gradient Peak 8.97 mmHg AV Mean 4.59 mmHg AV Area 2.6 cm MV Gradient Peak 4.25 mmHg MV Mean 1.45 mmHg MV Area cm COMMENTS: Cloth Burler: 2 SONIDO WILSON Upholsterer Inside: 3 Dr. Phillips TAPE# PACS Pericardial Effusion N DATE OF SERVICE: Adequate 2D, color flow imaging, spectral Doppler and M-mode. No LVH. LV internal dimension is normal. Wall motion is normal. EF is greater than or equal to 55%. Aortic valve is tricuspid. No evidence of stenosis by Doppler interrogation. Left atrium is upper limits of normal, mildly dilated at 4.1 cm. Mitral valve shows no prolapse. Trace MR. Right-sided chambers are grossly normal. Trace TR. ECHOCARDIOGRAM REPORT [id number] BABAK LANGLEY TRANSINT:[id number] Voice Confirmation ID: [id number] DOCUMENT ID: [id number] KELSI COLEY MD at 0804 CC: [id number] DICTATION DATE: 11/13/19 163 MAT INSPECTOR: 11/14/19 0231 DEP CLI 11/13/19 [place] [id number] [place] [id number]
== END | disposition home or self-care (01) ==
LOC: D.HCCECHO 10:11
PROVIDERS: ATTEND Internal Medicine Interventional Cardiology
DX: R07.9 Chest pain, unspecified (principal)

== ENCOUNTER → 2020-09-15 08:00 | Outpatient (CLI) | payer MEDICARE, BC ==
[2020-06-24 11:25] VITALS: BMI 29.2
--- NOTE | 2020-09-17 10:01 | EC ---
PATIENT:BABAK LANGLEY DATE OF SERVICE: 09/15/20 SEX: M MEDICAL RECORD: [id number] DATE OF : 52 LOCATION:D.[facility] AGE OF PATIENT: 70 ADMISSION DATE: 09/15/20 REFERRING PHYSICIAN: INTERPRETING PHYSICIAN: KELSI COLEY MD ECHOCARDIOGRAM REPORT ECHO CHARGES 4 ECHO COMPLETE Date: 09/15/20 CLINICAL DIAGNOSIS: HEART MURMUR HX OF CAD/HTN ECHOCARDIOGRAPHIC MEASUREMENTS (adult normal given) AC root (d.<3.7cm) 3.2 cm LV Septum d (<1.2 cm> 1.1 cm Valve Excursion 1.5 cm LV Septum (systole) 1.5 cm Left Atria (s.<4.0cm> 63.4 cm LVPW d(<1.2cm) 1.5 cm RV (d.<2.3cm) 4.1 cm LVPW (sytole) 1.7 cm LV diastole(<5.6CM) 4.6 cm MV E-F(>70mm/sec) cm LV systole 3.1 cm LVOT Diameter 2.0 cm MV exc.(>10mm) 1.9 cm Est.ejection fraction (50-75%) % DOPPLER: LVIT cm/sec A 73.0 cm/sec E 83.0 cm/sec LA cm/sec RVSP 22 mmHg LVOT 105 cm/sec AOP1/2T m/s Asc. Ao 118 cm/sec RVOT 88 cm/sec RA cm/sec PA 128 cm/sec AV Gradient Peak 5.56 mmHg AV Mean 2.83 mmHg AV Area 3.1 cm MV Gradient Peak 3.93 mmHg MV Mean 1.41 mmHg MV Area cm COMMENTS: Exercise Science Internship: 2 SONIDO WILSON Psychological Operations Officer: 3 Dr. Phillips TAPE# PACS Pericardial Effusion N DATE OF SERVICE: Adequate 2D echo, color flow imaging, spectral Doppler and M-Mode. FINDINGS: No LVH. LV internal dimension is normal. Wall motion is normal. EF is greater than or equal to 55%. Aortic valve is tricuspid. No evidence of stenosis by Doppler interrogation. Left atrium is normal at 3.4 cm. Mitral valve shows no prolapse. Trace MR. Right side is grossly normal. Trace TR. TRANSINT:[id number] Voice Confirmation ID: [id number] DOCUMENT ID: [id number] ECHOCARDIOGRAM REPORT [id number] BABAK LANGLEY GREGORY A MD at 1001 CC: [id number] DICTATION DATE: 09/16/20 152 RELISH MAKER: 09/16/20 2255 DEP CLI 09/15/20 [place] [id number] [place] [id number]
== END | disposition home or self-care (01) ==
LOC: D.HCCARDIO 08:00 → D.HCCECHO 09:00
PROVIDERS: ATTEND Internal Medicine Cardiovascular Disease
DX: R01.1 Cardiac murmur, unspecified (principal); I20.9 Angina pectoris, unspecified

== ENCOUNTER 2020-09-22 06:33 | Day surgery (SDC) | payer MEDICARE, BC ==
[~2020-09-22] VITALS: Ht 182.9 cm; Wt 101.7 kg
--- NOTE | ~2020-09-22 | HEMODYNAMI ---
PATIENT:BABAK LANGLEY MEDICAL RECORD: [id number] : 52 LOCATION:[facility] ADMISSION DATE: 09/22/20 Generatedon:19:23 Patient name: BABAK LANGLEY Patient #: [id number] SSN: [id number] : 1950 Date of study: 09/22/2020 Page: Of Hemodynamic Procedure Report Patient Data Patient Demographics Procedure consent was obtained First Name: BABAK Gender: Male Last Name: SHIVAM : 1950 Middle Initial: ANYA Age: 70 year(s) Patient #: [id number] Race: SSN: [id number] Additional ID: [id number] Contact details Address: [address] [place] [address] State: [place] City: [place] Zip code: [address] Past Medical History Performed procedures and imaging results Date Procedure Procedure Results Comments 09/15/2020 Stress testing Positive->Intermediate with SPECT MPI risk Allergies: No known allergies Admission Admission Data Admission Date: 09/22/2020 Admission Time: 6:33 Arrival Date: 09/22/2020 Arrival Time: 0:00 Admit Source: Other Insurance Payor: Medicare [facility] #: [id number] Height (in.): 72 BSA: 2.24 (m2) Height (cm.): 182.88 BMI: 30.41 (kg/m2) Weight (lbs.): 224.26 Weight (kg.): 101.72 Lab Results Lab Result Date: 09/22/2020 Lab Result Time: 0:00 Biochemistry Name Units Result Min Max BUN mg/dl 12 --(-*--)-- 7 18 Creatinine mg/dl 1.2 --(---*)-- 0.6 1.3 eGFR ml/min 64.65333 *-(----)-- 90 120 NONAFRICAN CBC Name Units Result Min Max Hematocrit % 37.9 *-(----)-- 42 54 Hemoglobin g/dl 11.4 *-(----)-- 13.5 17.5 Procedure Procedure Types Cath Procedure Diagnostic Procedure [facility] w/Coronaries FFR/IVUS FFR Initial Sedation Charges Moderate Sedation 25-39 minutes PCI Procedure Coronary Stent Coronary Stent Initial Hemochron ACT Test Procedure Description Procedure Date Procedure Date: 09/22/2020 Procedure Start Time: 8:46 Procedure End Time: 9:14 Procedure Staff Name Function Tres White MD Performing Physician Jared Lilly RN Nurse Jenny Flores RT Monitor Claudette Jaramillo RT Scrub Indication Coronary risk factors Procedure Data Cath Procedure Fluoroscopy Diagnostic fluoroscopy Total fluoroscopy Time: 8.4 time: 8.4 min min Diagnostic fluoroscopy Total fluoroscopy dose: dose: 1070 mGy 1070 mGy Contrast Material Contrast Material Type Amount (ml) Isovue 370 144 Entry Location Entry Primary Successful Side Size Upsize Upsize Entry Closure Yost ccessful Closure Location (Fr) 1 (Fr) 2 (Fr) Remarks Device Remarks Radial Right 6 Fr Mechanical artery Short Compression Estimated blood loss: 10 ml Diagnostic catheters Device Type Used For End Catheter Placement DIAGNOSTIC [place] 110cm 5 Procedure Fr catheter ([id number]) DIAGNOSTIC AR1 MOD 5Fr Procedure catheter ([id number]) DIAGNOSTIC Pigtail 5Fr Procedure catheter ([id number]) Procedure Complications No complications Procedure Medications Medication Administration Route Dosage Oxygen etCO2 Nasal cannula 2 l/min 0.9% NaCl I.V. 100 ml/hr Zofran I.V. 4 mg Heparin Flush Bag added to field 2 bags (1000units/500ml NS) Versed I.V. 1 mg Fentanyl I.V. 50 mcg Versed I.V. 1 mg Fentanyl I.V. 50 mcg Radial Cocktail I.A. 1 syringe (Verapamil 2mg/Nitro 400mcg/Heparin 1500units) Heparin Bolus I.V. 3000 units Versed I.V. 1 mg Heparin Bolus I.V. 2000 units Integrilin (Bolus I.V. 9 ml 2mg/ml) Plavix P.O. 600 mg Hemodynamics Rest BSA: 2.24 (m2) HGB: 11.4 (g/dl) O2 Consumption: Estimated: 249.6 (ml/min) O2 Con sumption indexed: Estimated:111.43 (ml/min/m) Heart Rate: 58 (bpm) Pressure Samples Time Site Value (mmHg) Purpose Heart Use Rate(bpm) 8:57 LV 118/15,20 Snapshot 78 Gradients Valve Time Site Site Mean SEP/DFP Peak To Heart Use 1 2 (mmHg) (sec/min) Peak Rate (mmHg) (bpm) Aortic 8:58 LV AO 71 Snapshots Pre Cath Intra NCS Post Cath Vital Signs Time Heart Resp SPO2 etCO2 NIBP (mmHg) Rhythm Pain Sedation Rate (ipm) (%) (mmHg) Status Level (bpm) 8:15:28 57 19 94 9 139/77(111) NSR 0 (11) 10(A) , No pain 8:19:46 58 17 96 24.9 124/72(104) NSR 0 (11) 10(A) , No pain 8:24:06 59 11 97 20.4 126/68(100) NSR 0 (11) 10(A) , No pain 8:28:24 58 16 97 30.2 130/70(95) NSR 0 (11) 10(A) , No pain 8:32:40 59 16 96 6 129/70(105) NSR 0 (11) 10(A) , No pain 8:37:00 62 14 97 24.1 130/68(103) NSR 0 (11) 10(A) , No pain 8:41:16 58 16 97 30.2 129/75(87) NSR 0 (11) 10(A) , No pain 8:45:37 58 15 98 31 131/72(108) NSR 0 (11) 10(A) , No pain 8:49:57 69 14 95 31.7 118/66(89) NSR 0 (11) 9(A) , No pain 8:54:13 66 10 95 19.6 127/64(92) NSR 0 (11) 9(A) , No pain 8:58:33 73 12 96 12.8 123/73(101) NSR 0 (11) 9(A) , No pain 9:02:51 67 14 98 34 124/70(103) NSR 0 (11) 9(A) , No pain 9:07:13 68 14 97 30.2 127/63(111) NSR 0 (11) 9(A) , No pain 9:11:33 68 12 98 32.4 140/75(109) NSR 0 (11) 10(A) , No pain 9:15:57 80 9 98 42.3 148/75(107) NSR 0 (11) 10(A) , No pain 9:20:22 97 34.7 135/81(109) NSR 0 (11) 10(A) , No pain Medications Time Medication Route Dose Verified Delivered Reason Note s Effectiveness by by 8:10:46 Oxygen etCO2 2 l/min Tres Coleman used for Nasal St Dru Lilly RN procedure cannula 8:11:10 0.9% NaCl I.V. 100 Tres Coleman Per physician ml/hr St Dru Lilly RN, MD 8:11:22 Zofran I.V. 4 mg Tres Coleman Per physician St Dru Lilly RN, MD 8:11:41 Heparin Flush added 2 bags Tres Joshua used for Bag to [facility] procedure (1000units/500ml field MD MASTERS NS) 8:40:00 Versed I.V. 1 mg Tres Coleman for sedation St Dru Lilly RN, MD 8:40:04 Fentanyl I.V. 50 mcg Tres Coleman for sedation St Dru Lilly RN, MD 8:46:56 Radial Cocktail I.A. 1 Tres Joshua for (Verapamil syringe [facility] vasodilation 2mg/Nitro MD MASTERS 400mcg/Heparin 1500units) 8:47:26 Versed I.V. 1 mg Tres Hitchcockie for sedation St Dru Lilly RN, MD 8:47:29 Fentanyl I.V. 50 mcg Tres Coleman for sedation St Dru Lilly RN, MD 9:01:10 Heparin Bolus I.V. 3000 Tres Coleman for veri fied units St Dru Lilly RN anticoagulation with dr MD mcmanus 9:04:28 Versed I.V. 1 mg Tres Coleman for sedation St Dru Lilly RN, MD 9:07:38 Heparin Bolus I.V. 2000 Tres Coleman for veri fied units St Dru Lilly RN anticoagulation with dr MD mcmanus 9:08:46 Integrilin I.V. 9 ml Tres Coleman for Wast ed 1 (Bolus 2mg/ml) St Dru Lilly RN antiplatelet ml of MD therapy vial 9:13:38 Plavix P.O. [address] for [address] Dru Lilly RN antiplatelet therapy Procedure Log Time Note 7:49:01 Informed consent obtained and on chart 7:49:38 Diagnostic Cath Status : Elective 7:49:49 Admit Source: Other 7:49:51 Arrival Date: 09/22/2020 12:00:00 AM 7:49:55 Insurance Payor : Medicare 7:50:26 Patient Height : 72 inches 7:50:30 Patient Weight : 224.26 lbs 7:51:22 Lab Result : Hemoglobin 11.4 g/dl 7:51:22 Lab Result : eGFR NONAFRICAN 64.67852 ml/min 7:51:22 Lab Result : BUN 12 mg/dl 7:51:22 Lab Result : Creatinine 1.2 mg/dl 7:51:22 Lab Result : Hematocrit 37.9 % 7:53:32 ACC Patient presents with Stable Angina CCS Anginal Class 2--Slight limitation of ordinary activity. 7:53:36 Procedure Status Elective Heart Cath (OP). 7:53:40 Time tracking: Regular hours (M-F 7:00 - 5:00) 7:53:44 Plan of Care:Hemodynamics will remain stable., Cardiac rhythm will remain stable., Comfort level will be maintained., Respiratory function will remain adequate., Patient/ family verbilizes understanding of procedure., Procedure tolerated without complication., Recovers from procedure without complications.. 7:53:53 H&P Date Dictated: 09/08/2020 Within 30 days and on chart.. 7:53:55 Pre-procedure instructions explained to patient. 7:53:55 Pre-op teaching completed and patient verbalized understanding. 7:53:58 Family unavailable. 7:54:00 Patient NPO since Midnight. 7:54:05 Patient allergic to No known allergies 7:54:11 Lab results completed and on chart. 7:54:22 Stress Test: yes; abnormal INFERIOR 7:54:24 Alarms reviewed by R. N. 7:54:24 Sharps counted by scrub and verified by R.N. 7:55:52 Jared Lilly RN sent for patient. Start room use. 7:56:01 Risk of Mortality: .1 7:56:04 Risk of blood transfusion: 3.3 7:56:07 Risk of WILL: 1.9 8:03:53 Patient received from Pre/Post Procedure Room to CCL 1 Alert and oriented. Tansferred to table in Supine position. 8:10:46 Oxygen 2 l/min etCO2 Nasal cannula was administered by Jared Lilly RN; used for procedure; Verbal order read back and verified. 8:11:10 0.9% NaCl 100 ml/hr I.V. was administered by Jared Lilly RN; Per physician; Verbal order read back and verified. 8:11:22 Zofran 4 mg I.V. was administered by Jared Lilly RN; Per physician; Verbal order read back and verified. 8:11:41 Heparin Flush Bag (1000units/500ml NS) 2 bags added to field was administered by Tres White MD; used for procedure; Verbal order read back and verified. 8:14:07 Warm blankets applied, and deon hugger turned on for patient comfort. 8:14:08 Correct patient and procedure confirmed by team. 8:14:08 ECG and BP/O2 sat monitors applied to patient. 8:14:09 Vital chart was started 8:14:10 Full Disclosure recording started 8:14:47 Baseline sample Acquired. 8:14:55 Is the patient allergic to Iodine/contrast media? No. 8:14:56 Was the patient premedicated? Yes 8:14:58 Is patient on blood thinner?No 8:15:00 Patient diabetic? No. 8:15:01 If diabetic: On Metformin? N/A 8:15:04 ----Pre-sedation anethsthesia assessment.---- 8:15:09 Previous problem with sedation/anesthesia? Yes NAUSEA 8:15:12 Snore? Yes 8:15:13 Sleep apnea? No 8:15:15 Deviated septum? No 8:15:16 Opens mouth fully? Yes 8:15:16 Sticks out tongue? Yes 8:15:18 Airway obstruction? No ? 8:15:21 Dentures? No ? 8:15:24 Pre procedure: right dorsailis pedis pulse 1+ Palpable, but thready & weak; easily obliterated 8:15:26 Modified Chris's test Ulnar < 7 seconds 8:15:29 Patient pain scale 0/10 ?. 8:15:36 IV patent on arrival in left antecubital with 0.9% NaCl at [facility]. 8:15:44 Right Radial & Right Groin area was prepped with chlora-prep and draped in sterile fashion 8:15:47 Use device set Radial Dx or PCI 8:15:49 ACIST Syringe (63601) opened to sterile field. 8:15:49 Medline Cath Pack ([id number]) opened to sterile field. 8:15:50 Bag Decanter (2002) opened to sterile field. 8:15:50 ACIST Hand Control (82716) opened to sterile field. 8:15:51 ACIST Manifold (66074) opened to sterile field. 8:15:52 MBrace Wrist Support ([id number]) opened to sterile field. 8:15:54 EMERALD Guide Wire (129-931) opened to sterile field. 8:15:54 SHEATH 6FR RAIN (1524245) opened to sterile field. 8:16:01 Rhythm: sinus rhythm 8:16:48 Indication : Coronary risk factors 8:34:34 Procedure delayed due to: DR MCNEILL CALLED TO OR 8:37:46 --------ALL STOP TIME OUT------ 8:37:47 Final Timeout: patient, procedure, and site verified with staff and physician. All members of the team are in agreement. 8:37:50 Right Radial & Right Groin site verified by team. 8:37:53 Fire Safety Assessment: A--An alcohol-based skin anteseptic being used preoperatively., C--Open oxygen or nitrous oxide is being used., D--An ESU, laser, or fiber-optic light is being used. 8:37:57 Physical assessment completed. ASA score P 2 - A patient with mild systemic disease as per Tres White MD. 8:38:00 2) 60-89 Mildly reduced kidney function, and other findings (as for stage 1) point to kidney disease. 8:38:03 Maximum allowable contrast dose (3.7 X eGFR X 0.75)178 ml. 8:38:08 Sedation plan: IV Moderate Sedation Medication:Versed, Fentanyl 8:40:00 Versed 1 mg I.V. was administered by Jared Lilly RN; for sedation; Verbal order read back and verified. 8:40:04 Fentanyl 50 mcg I.V. was administered by Jared Lilly RN; for sedation; Verbal order read back and verified. 8:46:35 Procedure started. 8:46:41 Local anesthetic to right radial artery with Lidocaine 2% by Tres White MD.INITIAL ACCESS ONLY 8:46:56 Radial Cocktail (Verapamil 2mg/Nitro 400mcg/Heparin 1500units) 1 syringe I.A. was administered by Tres White MD; for vasodilation; Verbal order read back and verified. 8:47:26 Versed 1 mg I.V. was administered by Jared Lilly RN; for sedation; Verbal order read back and verified. 8:47:29 Fentanyl 50 mcg I.V. was administered by Jared Lilly RN; for sedation; Verbal order read back and verified. 8:47:32 A 6 Fr Short sheath was inserted into the Right Radial artery 8:47:59 A DIAGNOSTIC [place] 110cm 5 Fr catheter (613234) was advanced over the wire and used for Procedure. 8:50:45 LCA angiography performed. 8:50:47 Injector settings: Ml/sec: 3, Volume: 6, 8:53:25 Catheter removed. 8:53:59 A DIAGNOSTIC AR1 MOD 5Fr catheter ([id number]) was advanced over the wire and used for Procedure. 8:54:52 RCA angiography performed. 8:54:54 Injector settings: Ml/sec: 3, Volume: 6, 8:56:11 Catheter removed. 8:58:03 A DIAGNOSTIC Pigtail 5Fr catheter ([id number]) was advanced over the wire and used for Procedure. 8:58:15 LV gram done using VALENCIA 8:58:20 EF : 55 % 8:58:21 LV hemodynamics recorded. 8:58:30 Catheter exchanged over wire. 8:58:31 Proceeding to intervention. 8:58:36 Use device set [place] PCI 8:58:39 INFLATOR Merit BasixCompak (ND7122) opened to sterile field. 8:59:06 GUIDE 6FR HS I catheter (LA6HSI) opened to sterile field. 8:59:18 [place] OmniWire (18881) opened to sterile field. 9:00:14 6 Fr HS 1 guide catheter was inserted over the wire 9:01:10 Heparin Bolus 3000 units I.V. was administered by Jared Lilly RN; for anticoagulation; verified with dr mcmanus Verbal order read back and verified. 9:01:36 Zero performed for pressure channel P1 9:01:57 Zero performed for pressure channel P1 9:02:02 Zero performed for pressure channel P1 9:02:10 Zero performed for pressure channel P1 9:02:53 Pressure wire advanced. 9:03:31 Wire advanced across lesion. 9:04:28 Versed 1 mg I.V. was administered by Jared Lilly RN; for sedation; Verbal order read back and verified. 9:05:23 mRCA lesion measured at .85 with IFR 9:05:52 Pre PCI Site: [place] mRCA has 85% stenosis. 9:07:38 Heparin Bolus 2000 units I.V. was administered by Jared Lilly RN; for anticoagulation; verified with dr mcmanus Verbal order read back and verified. 9:08:20 Place stent Inflation Number: 1 A WES RX 3.5 x 18 stent ([id number]) was prepped and advanced across the Mid RCA 85. The stent was deployed at 12 SUNNY for 0:26 (min:sec) . 9:08:46 Integrilin (Bolus 2mg/ml) 9 ml I.V. was administered by Jared Lilly RN; for antiplatelet therapy; Wasted 1 ml of vial Verbal order read back and verified. 9:09:06 Inflation number: 1 The stent balloon was then re-inflated across the Prox RCA to 8 SUNNY for 0:14 (min:sec) . 9::31 Inflation number: 2 The stent balloon was then re-inflated across the Prox RCA to 10 SUNNY for 0:09 (min:sec) . 9:09:54 ZEPHYR REGULAR TR BAND (072467) opened to sterile field. 9:10:07 Stent catheter was removed intact over wire. 9:10:08 Wire removed. 9:10:08 Guide catheter removed. 9:10:18 Sheath removed intact; hemostasis achieved with Mechanical Compression to the Right Radial artery. 9:10:24 Fluoroscopy time 08.40 minutes. 9:10:28 Flurop Dose total: 1070 9:10:28 Fluoroscopy dose: 1070 mGy 9:10:34 Dose Area Product 49895 mGy/cm. 9:10:37 Contrast amount:Isovue 370 144ml. 9:10:39 Procedure ended.(Physican Out) 9:11:04 Maximum allowable dose exceeded? No. 9:11:04 Sharps counted by scrub and verified by R.N. 9:11:08 [place] band inflated with 11cc of air. 9:11:10 Post Procedure Pulses reassessed and unchanged 9:11:13 Post procedure: right dorsailis pedis pulse 1+ Palpable, but thready & weak; easily obliterated. 9:11:16 Post-procedure physical assessment completed. ASA score P 2 - A patient with mild systemic disease as per Tres White MD. 9:11:19 Post procedure rhythm: sinus rhythm 9:11:22 Estimated blood loss: 10 ml 9:11:24 Post procedure instruction explained to patient.Patient verbalizes understanding. 9:11:24 Patient needs reinforcement of post procedure teaching. 9:12:10 Procedure type changed to Cath procedure, Diagnostic procedure, LHC, [facility] w/Coronaries, FFR/IVUS, FFR Initial, Sedation Charges, Moderate Sedation 25-39 minutes, PCI procedure, Coronary Stent, Coronary Stent Initial, Hemochron ACT Test 9:13:38 Plavix 600 mg P.O. was administered by Jared Lilly RN; for antiplatelet therapy; Verbal order read back and verified. 9:14:16 Procedure and supply charges have been captured, reviewed, submitted and are correct. 9:14:31 Procedure Complication : No complications 9:14:35 [facility] Findings: MVD- PCI performed (see procedure note) 9:14:36 Operative report dictated upon procedure completion. 9:14:36 See physician's report for complete and final results. 9:14:38 Report given to Pre/Post Procedure Room. 9:14:41 Patient transfered to Pre/Post Procedure Room with Stretcher. 9:14:44 Procedure ended. 9:14:44 Full Disclosure recording stopped 9:14:51 ACC-PCI Only Patient was given prescriptions, or instructed by Tres White MD to start/continue the following medications upon discharge: Plavix 9:14:52 End room use (Document Last) 9:16:52 ACT drawn and resulted at 326 seconds. (normal therapeutic range 180-240 seconds). 9:22:25 End room use (Document Last) 9:22:40 End room use (Document Last) 9:22:59 Vital chart was stopped Intervention Summary Intervention Notes Time ActionType Lesion and Equipment Used Action# Pressure Duration Attributes 9:08:20 Place stent Mid RCA WES RX 3.5 x 1 12 00:26 18 stent ([id number]) 9:09:06 Reinflate Prox RCA WES RX 3.5 x 1 8 00:14 stent 18 stent balloon ([id number]) 9:09:31 Reinflate Prox RCA WES RX 3.5 x 2 10 00:09 stent 18 stent balloon ([id number]) Device Usage Item Name Manufacture Quantity Catalog Hospital Part [facility] Lot# / Number Charge Number Stock Stock Serial# Code ACIST Syringe Acist 1 51694 [id number] 564296 [id number] 20 (01300) Medical Systems Inc Medline Cath Medline 1 [id number] 125801 20280 653253 5 Pack ([id number]) Bag Decanter Microtek 1 2001S 831163 40478 659588 5 (2001S) Medical Inc. ACIST Hand Acist 1 70452 996727 864114 269081 5 Control Medical (89307) Systems Inc ACIST Manifold Acist 1 55011 381279 776164 703432 5 (59894) Medical Systems Inc MBrace Wrist Advanced 1 140-0250-00 370910 11624 233109 5 Support Vascular ([id number]) Dynamics EMERALD Guide Cardinal 1 502-455 681128 311472 617855 5 Wire (502-455) Health SHEATH 6FR Cardinal 1 3002368 936832 0621490 484435 5 RAIN (4314351) Health DIAGNOSTIC Terumo 1 40-9787 028330 120405 049825 5 [place] 110cm 5 Fr catheter (503321) DIAGNOSTIC AR1 Cardinal 1 [id number] 705293 389677 279350 15 MOD 5Fr Health catheter (680671P) DIAGNOSTIC Cardinal 1 [id number] 894984 409969 567707 5 Pigtail 5Fr Health catheter (481028T) INFLATOR Merit Merit 1 [id number] 178815 266126 548152 15 AkeLex Medical (VT8611) GUIDE 6FR HS I Medtronic 1 LA6HSI 792060 02486 019075 1 catheter (LA6HSI) [place] 1 2380782 940472 78174 9990 5 OmniWire (87387) WES RX 3.5 x Medtronic 1 [id number] 201344 9476343 519942 5 [id number] 18 stent ([id number]) ZEPHYR REGULAR Cardinal 1 465343 811931 7362605 444867 5 TR [facility] (093253) Signature Audit [place] Stage Time Signature Unsigned Intra-Procedure 09/22/2020 Jenny Flores 9:22:25 AM RT(R) Intra-Procedure 09/22/2020 Jared Lilly RN 9:22:40 AM Intra-Procedure 09/22/2020 Tres Hadley 9:22:57 AM Dru MASTERS [id number] [place] [address]
[2020-09-22] MEDS ORDERED: TRAZODONE HCL150 MG PO (06:50)
[2020-09-22] MEDS ORDERED: LEVOTHYROXINE150 MCG PO (06:51)
[2020-09-22] MEDS ORDERED: OMEPRAZOLE20 M1 PO (06:52)
[2020-09-22 07:08] VITALS: BP 135/61; Ht 182.9 cm; Wt 101.7 kg
[2020-09-22 07:15] LABS: BASOPHILS 0.7 % (0-2); EOSINOPHILS 2.3 % (0-7); HEMATOCRIT 37.9 % (42.0-54.0); HEMOGLOBIN 11.4 g/dL (13.5-17.5); IMMATURE GRANULOCYTES 0.2 % (0-5); LYMPHOCYTE ABS# 2.05 10x3/uL (1.32-3.57); LYMPHOCYTES 34.2 % (15-50); MCH 24.2 pg (26.0-34.0); MCHC 30.1 g/dL (31.0-37.0); MCV 80.5 fL (80.0-100.0); MEAN PLATELET VOLUME 8.3 fL (7.4-10.4); MONOCYTES 13.7 % (2-11); NEUTROPHIL ABS# 2.94 10x3/uL (1.78-5.38); NEUTROPHILS 48.9 % (40-80); PLATELET COUNT 339 10x3/uL (130-400); RBC 4.71 10x6/uL (4.20-6.10); RDW 15.7 % (11.5-14.5)
[2020-09-22 07:26] LABS: ANION GAP 12.3 mmol/L (8-16); CARBON DIOXIDE 25.6 mmol/L (21.0-32.0); CREATININE - SERUM 1.2 mg/dL (0.6-1.3); LDL-HDL RATIO 2.4 ratio (1.5-3.5); POTASSIUM - SERUM 3.9 mmol/L (3.5-5.1)
--- NOTE | 2020-09-22 09:29 | NUR ---
PT ARRIVED BY STRETCHER. PLACED ON MONITORS. ASSESSMENT COMPLETED. VSS AT THIS TIME. CALL LIGHT WITHIN REACH. FAMILY AT BEDSIDE.
[2020-09-22] MEDS ORDERED: PLAVIX75 MG PO (09:34)
[2020-09-22] MEDS ORDERED: BAYER CHEWABLE81 MG PO (09:34)
--- NOTE | 2020-09-22 09:45 | NUR ---
PT RESTING COMFORTABLY. VSS. RIGHT WRIST Z BAND IN PLACE. NO BLEEDING/HEMATOMA NOTED. FAMILY AT BEDSIDE. CALL LIGHT WITHIN REACH. PT DENIES NAUSEA/PAIN.
--- NOTE | 2020-09-22 10:20 | NUR ---
RIGHT WRIST Z BAND IN PLACE. NO BLEEDING/HEMATOMA NOTED. CALL LIGHT WITHIN REACH. PT RESTING COMFORTABLY. DR. COLEY ROUNDED AND SPOKE WITH PT AND PT'S . THEY VOICED UNDERSTANDING. PT SET UP WITH CARDIAC REHAB. DENI HANSON NOTIFIED AND INFO PACKET GIVEN TO PT.
--- NOTE | 2020-09-22 11:00 | NUR ---
RIGHT WRIST Z BAND IN PLACE. NO BLEEDING/HEMATOMA NOTED. VSS AT THIS TIME. PT RESTING COMFORTABLY. CALL LIGHT WITHIN REACH. DENIES NAUSEA/PAIN.
--- NOTE | 2020-09-22 11:35 | NUR ---
RIGHT WRIST Z BAND IN PLACE. NO BLEEDING/HEMATOMA NOTED. CALL LIGHT WITHIN REACH. VSS AT THIS TIME.
--- NOTE | 2020-09-22 12:15 | NUR ---
2cc OF AIR REMOVED FROM Z BAND. NO BLEEDING/HEMATOMA NOTED. TOLERATED WELL. PT SET UP WITH SANDWICH TRAY AND DRINK. DENIES NAUSEA/PAIN.
--- NOTE | 2020-09-22 12:30 | NUR ---
3cc OF AIR REMOVED FROM Z BAND. NO BLEEDING/HEMATOMA NOTED. TOLERATING WELL. VSS. RIGHT HAND WARM TO TOUCH. CAP REFILL < 3 SECS.
--- NOTE | 2020-09-22 12:45 | NUR ---
5cc OF AIR REMOVED FROM Z BAND. NO BLEEDING/HEMATOMA NOTED. TOLERATED WELL. VSS. CALL LIGHT WITHIN REACH. FAMILY AT BEDSIDE.
--- NOTE | 2020-09-22 13:00 | NUR ---
Z BAND REMOVED AND DRESSING APPLIED. RIGHT WRIST BRACE IN PLACE. NO BLEEDING/HEMATOMA NOTED. PIV D/C'D WITH CATH TIP INTACT. TOLERATED WELL. PT INSTRUCTED TO GET UP AND DRESSED AT THIS TIME. FAMILY AT BEDSIDE TO ASSIST. CALL LIGHT LEFT WITHIN REACH.
--- NOTE | 2020-09-22 13:05 | NUR ---
DISCUSSED DISCHARGE INSTRUCTIONS WITH PT AND PT'S FAMILY. THEY VOICED UNDERSTANDING. PT AMBULATED TO RESTROOM AND VOIDED WITHOUT DIFFICULTY. STEADY GAIT NOTED.
--- NOTE | 2020-09-22 13:15 | NUR ---
PT TAKEN OUT TO VEHICLE. HE REFUSED WHEELCHAIR, SO I WALKED HIM OUTSIDE AND HIS WALKED WITH HIM TO CAR. NO S/S OF DISTRESS NOTED. ALL BELONGINGS AND PAPERWORK IN HAND. RIGHT WRIST DRESSING C/D/I. NO S/S OF HEMATOMA NOTED.
--- NOTE | 2020-09-23 13:58 | OP ---
PATIENT NAME: BABAK LANGLEY MEDICAL RECORD: [id number] :52 LOCATION:D.CAT ADMISSION DATE: SURGEON: KELSI COLEY MD DATE OF OPERATION: 09/22/2020 PROCEDURE: Left heart catheterization, selective coronary angiography plus IFR wire to the right plus stenting to the right, right radial approach. CATHETERS: Radial sheath, [place] catheter. The procedure was well tolerated. The patient returned to the mason. Sheath removed. TR band was placed. FINDINGS: Left ventriculography in 30 degree VALENCIA view; normal wall motion, normal systolic function. CORONARY ANATOMY: Left main: Left main is free of disease. LAD: Shows luminal irregularities, but no flow obstructive stenosis. Circumflex: Free of disease. Right coronary artery: Has somewhat diffuse 80% stenosis. This is confirmed with IFR wire less than 0.9. DESCRIPTION OF PROCEDURE: A 3.5 x 18 mm Medhat drug-eluting stent was placed in 80% right coronary stenosis and inflated up to 14 atmospheres for 45 seconds. Final angiography shows excellent resolution of 80% stenosis confirmed via IFR wire with no significant residual, nice step up proximally and step down distally. Sheath closed with ExoSeal device. Plavix loaded in the lab. TRANSINT:[id number] Voice Confirmation ID: [id number] DOCUMENT ID: [id number] KELSI COLEY MD at 1358 CC: [id number] DICTATION DATE: 09/22/20 1011 PERFORMANCE REPORTER: 09/22/20 1804 [facility] 09/22/20 [id number] [place] [address]
== END 2020-09-22 13:15 | disposition home or self-care (01) ==
LOC: D.CATH 06:33
PROVIDERS: ATTEND Internal Medicine Interventional Cardiology
DX: I25.119 Atherosclerotic heart disease of native coronary artery with unspecified angina pectoris (principal); R01.1 Cardiac murmur, unspecified; I10 Essential (primary) hypertension
CPT/HCPCS: 93458; 93571; C9600